=== PATIENT | male | born 1985 | race Two or more races ===

== ENCOUNTER 2016-05-03 04:29 | Emergency (ER) | payer OTHER ==
[~2016-05-03] VITALS: Ht 172.7 cm; Wt 77.1 kg
[2016-05-03] MEDS ORDERED: NKM (04:45)
[2016-05-03] MEDS ORDERED: chlordiazePOXIDE 25mg Cap ONE (04:53)
[2016-05-03] MEDS ORDERED: LIBRIUM25 MG ORAL (04:58)
--- NOTE | 2016-05-03 04:58 | Emergency Room Report ---
History of Present Illness General Chief Complaint: General Complaint Source: Patient Present Illness HPI This is a 31-year-old male who has been binge drinking about police 6 beers a day for several days now. He quit yesterday. Now getting shaky. This happened to him before. Denies any suicidal thought homicidal thought. Denies any other drug use. Does want to go to rehabilitation. No other complaint. No seizure activity. Allergies: Coded Allergies: No Known Allergies (Unverified , 05/03/16) Patient History Past Medical History: see triage record, old chart reviewed Past Surgical History: none Pertinent Family History: none Social History: Reports: alcohol use Immunizations: other Reviewed Nursing Documentation: PMH: Agreed, PSxH: Agreed Nursing Documentation-PMH Past Medical History: No Stated History Review of Systems Eye: Denies: blurred vision, eye pain ENT: Denies: ear pain, nose congestion, throat swelling Respiratory: Denies: cough, shortness of breath Cardiovascular: Denies: chest pain, palpitations Gastrointestinal: Denies: abdominal pain, diarrhea, nausea, vomiting Musculoskeletal: Denies: back pain, joint pain Skin: Denies: rash Neurological: Denies: headache, numbness Endocrine: Denies: increased thirst, increased urine Hematologic/Lymphatic: Denies: easy bruising All Other Systems: negative except mentioned in HPI Physical Exam Vital Signs Date Time Temp Pulse Resp B/P Pulse Ox O2 Delivery O2 Flow Rate FiO2 05/03/16 04:41 97.3 79 18 107/37 98 Room Air vitals normal Sp02 EP Interpretation: reviewed, normal General Appearance: well appearing, no apparent distress, alert Head: normocephalic, atraumatic Eyes: bilateral eye EOMI, bilateral eye PERRL ENT: hearing grossly normal, normal pharynx Neck: full range of motion, supple, no meningismus Respiratory: chest non-tender, lungs clear, normal breath sounds Cardiovascular #1: regular rate, rhythm, no murmur Gastrointestinal: normal bowel sounds, non tender, no mass, no organomegaly, no bruit, non-distended Musculoskeletal: back normal, gait/station normal, normal range of motion Neurologic: alert, oriented x3, other - Mild tremulous Psychiatric: mood/affect normal Skin: warm/dry Medical Decision Making Diagnostic Impression: Primary Impression: Alcohol abuse Additional Impression: Alcohol withdrawal syndrome Qualified Codes: F10.230 - Alcohol dependence with withdrawal, uncomplicated ER Course Patient presents with alcohol abuse and mild withdrawal symptoms. No suicidal thought homicidal thought. No criteria for 5150. No trauma. Last Vital Signs Date Time Temp Pulse Resp B/P Pulse Ox O2 Delivery O2 Flow Rate FiO2 05/03/16 04:41 97.3 79 18 107/37 98 Room Air Status: improved Disposition: HOME, SELF-CARE Condition: Stable Scripts Chlordiazepoxide (Chlordiazepoxide HCl) 25 Mg Capsule 25 MG ORAL BID, #10 CAP 0 Refills Prov: SETH PALOMO M.D. 05/03/16 Referrals: [facility],REFERRING (PCP) Additional Instructions: Stop drinking alcohol. Followup your Dr. in 7 days. Go to AA. Go to Rehabilitation. Return if worse. SETH PALOMO M.D. May 03, 2016 04:58
[2016-05-03] MEDS ORDERED: chlordiazePOXIDE 25mg Cap ORAL ONE (05:00)
[2016-05-03 05:06] VITALS: BP 110/52
== END 2016-05-03 05:08 | disposition home or self-care (01) ==
LOC: EMR 04:53
DX: F10.230 Alcohol dependence with withdrawal, uncomplicated (principal)
CPT/HCPCS: 99284

== ENCOUNTER 2016-08-29 02:16 | Emergency (ER) | payer OTHER ==
[~2016-08-29] VITALS: Ht 172.7 cm; Wt 77.1 kg
[~2016-08-29 02:16] MED LIST: LIBRIUM25 MG ORAL; NKM
[2016-08-29] MEDS ORDERED: LIBRIUM25 MG ORAL (02:44)
--- NOTE | 2016-08-29 02:44 | Emergency Room Report ---
History of Present Illness General Chief Complaint: General Complaint Source: Patient, Medical Record Present Illness HPI Is a 31-year-old male with no past medical history. He has a history of alcohol abuse. He has been to multiple [employer] meetings. He has been clean for several months but began drinking again 5 days ago. He's been drinking about 6 beers a day for last 5 days. He quit yesterday. Now going through withdrawal with shaking. Never had DTs or seizure. Not suicidal or homicidal. Allergies: Coded Allergies: No Known Allergies (Unverified , 05/03/16) Patient History Past Medical History: see triage record, old chart reviewed Past Surgical History: none Pertinent Family History: none Social History: Reports: alcohol use Immunizations: other Reviewed Nursing Documentation: PMH: Agreed, PSxH: Agreed Review of Systems Eye: Denies: blurred vision, eye pain ENT: Denies: ear pain, nose congestion, throat swelling Respiratory: Denies: cough, shortness of breath Cardiovascular: Denies: chest pain, palpitations Gastrointestinal: Denies: abdominal pain, diarrhea, nausea, vomiting Musculoskeletal: Denies: back pain, joint pain Skin: Denies: rash Neurological: Denies: headache, numbness Endocrine: Denies: increased thirst, increased urine Hematologic/Lymphatic: Denies: easy bruising All Other Systems: negative except mentioned in HPI Physical Exam Vital Signs Date Time Temp Pulse Resp B/P Pulse Ox O2 Delivery O2 Flow Rate FiO2 08/29/16 02:19 98.1 87 16 147/67 97 Room Air vitals normal Sp02 EP Interpretation: reviewed, normal General Appearance: well appearing, no apparent distress, alert Head: normocephalic, atraumatic Eyes: bilateral eye EOMI, bilateral eye PERRL ENT: hearing grossly normal, normal pharynx Neck: full range of motion, supple, no meningismus Respiratory: chest non-tender, lungs clear, normal breath sounds Cardiovascular #1: regular rate, rhythm, no murmur Gastrointestinal: normal bowel sounds, non tender, no mass, no organomegaly, no bruit, non-distended Musculoskeletal: back normal, gait/station normal, normal range of motion Neurologic: alert, oriented x3, other - Mild tremors Psychiatric: mood/affect normal Skin: warm/dry Medical Decision Making Diagnostic Impression: Primary Impression: Alcohol withdrawal Qualified Codes: F10.230 - Alcohol dependence with withdrawal, uncomplicated Additional Impression: Alcohol abuse ER Course Patient's with mild alcohol withdrawal syndrome. Not suicidal or homicidal. No delusion or hallucination. We'll discharge home. Will refer to rehabilitation. Last Vital Signs Date Time Temp Pulse Resp B/P Pulse Ox O2 Delivery O2 Flow Rate FiO2 08/29/16 02:19 98.1 87 16 147/67 97 Room Air Status: unchanged Disposition: HOME, SELF-CARE Condition: Stable Scripts Chlordiazepoxide (Chlordiazepoxide HCl) 25 Mg Capsule 25 MG ORAL THREE TIMES A DAY, #15 CAP 0 Refills Prov: SETH PALOMO M.D. 08/29/16 Additional Instructions: Followup with your Dr. in 7 days. Go to rehabilitation. Return if worse. Abstain from alcohol. SETH PALOMO M.D. Aug 29, 2016 02:44
[2016-08-29] MEDS ORDERED: chlordiazePOXIDE 25mg Cap ORAL ONE (02:45)
[2016-08-29 02:48] VITALS: BP 147/67
== END 2016-08-29 02:48 | disposition home or self-care (01) ==
LOC: EMR 02:40
DX: F10.239 Alcohol dependence with withdrawal, unspecified (principal); R25.1 Tremor, unspecified
CPT/HCPCS: 99283